=== PATIENT | male | born 1970 | race Caucasian/White ===

== ENCOUNTER 2016-10-16 17:42 | Emergency (ER) | payer SELFPAY ==
[2016-10-16 19:12] VITALS: BP 148/63; PULSE 82; TEMP 98.5; BMI 22.9
--- NOTE | 2016-10-16 19:54 | EDPRACDOC ---
- General Information Chief Complaint: Wound Stated Complaint: WOUND CHECK BEHIND RT EAR Time Seen by Provider: 10/16/16 19:38 Mode of Arrival:: Car Allergies/Adverse Reactions: Allergies Allergy/AdvReac Type Severity Reaction Status Date / Time Penicillins Allergy Mild Rash-Genera Verified 09/01/11 23:59 lized codeine [Codeine] Allergy Unknown RASH Unverified 09/08/11 07:49 hydrocodone [Hydrocodone] Allergy Unknown Itching Verified 09/08/11 07:49 - History of Present Illness Onset: YEARS HPI: PT PRESENTS TODAY WITH MASS JUST BEHIND THE RIGHT EAR. STATES THAT IT HAS BEEN THERE FOR YEARS, BUT IS CURRENTLY BLEEDING. NO OTHER COMPLAINTS. Location: Reports: Head Relevent History Of: Reports: None Prior Abscess: Reports: None Pain: Reports: None Quality: Reports: None Associated Signs & Symptoms: Reports: None ED Past Medical History - History Reviewed Yes Nurses notes reviewed and agree except as marked EDM Review of Systems - Review of Systems ROS Negative Except as Marked: Yes All systems reviewed and were negative except as marked Constitutional: No Symptoms Reported Eyes: No Symptoms Reported Ears: No Symptoms Reported Throat: No Symptoms Reported Nose: No Symptoms Reported Respiratory: No Symptoms Reported Cardiovascular: No Symptoms Reported Gastrointestinal: No Symptoms Reported Neurological: No Symptoms Reported Musculoskeletal: No Symptoms Reported Integumentary: Other - Physical Exam Constitutional: Alert (Awake), No apparent distress Oriented to: Time, Person, Place Last recorded Vital Signs: Last Vital Signs Temp 98.5 F 10/16/16 19:10 Pulse 82 10/16/16 19:10 Resp 18 10/16/16 19:10 BP 148/63 10/16/16 19:10 Pulse Ox 98 10/16/16 19:10 Oxygen Pulse Oxygen Saturation 98 O2 Device Oxygen Flow Rate Fraction of Inspired Oxygen ( FIO2) - HEENT Head: Normal Eye Exam: Normal Neck: Normal, Denies Pain, Midline - Respiratory/Cardiovascular Respiratory: Normal - CTA Cardiovascular: Normal - GI Palpation: Normal Tenderness: Non tender - Musculoskeletal Back: Normal Extremities: Normal - Integumentary Skin: Other (NOTED BLEEDING SKIN TAG JUST BEHIND RIGHT EAR LOBE; VERY POSSIBLY A BCC) Lymphatics: Normal - Neurologic Cerebellar: Normal Mood Description: Normal Thought: Coherent Perception: Normal Decision Time to Discharge: 19:53 - Departure Disposition: Home Condition: Good Final Diagnosis: Basal cell carcinoma Instructions: Basal Cell Carcinoma (GEN), Skin Cancer Prevention (ED) Education/Counseling Given To: Patient Education/Counseling Given Regarding: Diagnosis, Treatment, Follow Up Referrals: None,No Provider [Primary Care Provider] - One Week Ralph Patel MD [Staff Physician] - One Week Ramirez Cabral II, MD [Staff Physician] - One Week Niall Nicole MD [Ambulatory] - One Week Additional Instructions: DO NOT ATTEMPT TO REMOVE LESION. HAVE THIS LESION REMOVED BY SPECIALISTS AND SENT FOR BIOPSY.
== END 2016-10-16 20:00 | disposition home or self-care (01) ==
LOC: ED 17:42 → EDMC 20:00
DX: C44.212 Basal cell carcinoma of skin of right ear and external auricular canal (principal)
CPT/HCPCS: 99282